=== PATIENT | male | born 1955 | race Caucasian/White ===

== ENCOUNTER 2018-09-20 09:32 | Observation (INO) | payer BC, SELFPAY ==
[2018-09-20] VITALS (9 sets, daily range): BP systolic 127–137; BP diastolic 86–94; PULSE 81–141; RESP 1–19; TEMP 36.2–36.6; O2SAT 96–99; BMI 25.2; BMI 24.3
--- NOTE | 2018-09-20 09:49 | EKG12_ITS ---
Test Reason : DIZZINESS Blood Pressure : / mmHG Vent. Rate : 095 BPM Atrial Rate : 095 BPM P-R Int : 144 ms QRS Dur : 078 ms QT Int : 366 ms P-R-T Axes : 049 022 042 degrees QTc Int : 459 ms Normal sinus rhythm Normal ECG Confirmed by MIGUE BERMUDEZ, LUCRECIA ([id number]), acquisition editor KINGSLEY SCHNEIDER ([id number]) on 09/24/2018 12:58:12 PM Referred By: Jerzy Pavon Confirmed By:MARY CAMARENA MD
--- NOTE | 2018-09-20 09:49 | CT_ITS ---
STUDY: CT BRAIN WITHOUT CONTRAST REASON FOR EXAM: Male, 63 years old. Increased weakness and dizziness. History of prostate cancer. RADIATION DOSAGE (If Supplied By Facility): CTDIvol = ( 44.99 ) mGy, DLP = ( 832.67 ) mGycm TECHNIQUE: Transaxial CT imaging of the brain was performed without administration of intravenous contrast material. Individualized dose optimization techniques were used for this CT. COMPARISON: No relevant priors. FINDINGS: Normal soft tissue structures. Normal calvarium. There is mild cerebral atrophy with widening of the extra-axial spaces and ventricular dilatation. Normal white matter tracts of the cerebral hemispheres. Normal basal ganglia and thalami. Normal brainstem. Normal cerebellum. There is no intracranial hemorrhage. There are no findings of an acute ischemic infarction. Mild mucosal thickening along the left maxillary sinus. CT/Brain/Head without Contrast IMPRESSION: Chronic involutional changes of the brain. Mucosal thickening of the right maxillary sinus. Evidence of prior maxillary sinus surgery. Electronically Signed: Allan Melendrez, at 10:46 EDT , Service support ,
--- NOTE | 2018-09-20 09:49 | RAD_ITS ---
STUDY: X-RAY CHEST REASON FOR EXAM: Male, 63 years old. Weakness and dizziness. TECHNIQUE: AP and lateral views of the chest. COMPARISON: None. FINDINGS: The lungs are clear and expanded. There is no demonstrated pleural abnormality. Normal size heart. Normal mediastinum and jay jay. Normal visualized pulmonary arteries. Normal visualized aortic arch and descending thoracic aorta. Normal visualized thoracic spine. Normal visualized ribs, clavicles, and shoulders. There is no demonstrated abnormality of the visualized soft tissue structures of the upper abdomen. RAD/Chest PA and Lateral IMPRESSION: Normal x-ray examination of the chest. Electronically Signed: Allan Melendrez, at 10:47 EDT , Service support ,
--- NOTE | 2018-09-20 09:52 | ED.VISSUMM ---
- ER Visit Summary Date of Service: 09/20/18 Chief Complaint: Dizziness and weakness History of Present Illness: The patient is a 63 M who presents with dizziness and weakness that is been getting worse over the past week. Patient was seen in the emergency department in [place] 6 days ago. Patient was diagnosed with dehydration at that time. Patient states the dizziness and weakness has been constant. Patient states he has been drinking plenty of fluids but is not feeling any better. Patient describes his dizziness as a spinning sensation and disequilibrium. Patient states his dizziness is worse with standing. Patient admits to some chills and sweats. Patient also admits to some dull aching in his left chest. Patient denies any shortness of breath. Patient denies any nausea or vomiting. Patient does admit to a headache. Physical Examination: Vital signs are stable. Patient is afebrile. Patient is in no acute distress. Pupils are equal, round, and reactive to light bilaterally. Extraocular muscles are intact. There is some nystagmus with right lateral gaze. This did reproduce the patient's dizziness. Oral mucosa is pink and moist. Neck is supple. Trachea is midline. There is no JVD noted. Heart was regular rate and rhythm. Lungs are clear and equal bilateral. Abdomen is soft. Bowel sounds are normal. There is no tenderness. There is no guarding noted. Skin is warm dry. Cranial nerves II through XII are intact. There are no focal motor or sensory deficits noted. Test Results: CT scan of the brain was obtained. There is no acute intracranial abnormality. There is some mucosal thickening of the right maxillary sinus. PA and lateral chest x-ray does not show any acute cardiopulmonary process. EKG showed normal sinus rhythm with a rate of 95. There are no acute ST or T wave changes. CBC showed a mild leukocytosis of 12.4. Hemoglobin was 11.6. Basic metabolic profile was within normal limits. Troponin was normal. Emergency Department Course and Treatment: Patient was given meclizine and Zofran here. Patient had no improvement of his dizziness with this. Patient was given a repeat dose of meclizine and a dose of Valium here. Patient states he still had no improvement of his dizziness with this. Case was discussed with the hospitalist. He will be in to evaluate the patient for observation admission. Disposition: Admit for observation Impression: 1. Dizziness This note was generated with [employer]ation software. It may contain incorrect words, spelling, and punctuation that were not noted in review of the chart prior to signing ED Disposition - Plan for ED Patient: Disposition: Acute Care Hospital [facility] Diagnosis: Dizziness of unknown etiology Referrals: Ruthie Wood MD [Primary Care Provider] -
[2018-09-20] MEDS: Meclizine HCl 25 MG Tablet PO ×2 (10:04→11:33)
[2018-09-20] MEDS: Ondansetron 4 MG/2 ML Vial IV (10:12)
[2018-09-20] MEDS: 0.9% Normal Saline 1,000 ML 1000 ML IV (10:12)
--- NOTE | 2018-09-20 10:17 | ED.RN ---
NO OLD EKG
[2018-09-20 10:30] LABS: Absolute Lymphocyte Count 1.47 X10^3/uL (0.83-4.51); Absolute Neutrophil Count 9.2 X10^3/uL (2.0-7.7); Basophil% 0.8 % (0-1); Eosinophil# 0.25 X10^3/uL; Hematocrit 37.3 % (40-54); Hemoglobin 11.6 g/dL (13.0-16.5); Lymphocyte # 1.47 X10^3/ul (4.0); Lymphocyte % 11.9 % (19-41); Mean Corp Hgb Conc 31.1 g/dL (32-36); Mean Corpuscular Hgb 26.4 pg (27.0-32.0); Mean Platelet Vol. 9.4 fl (6.2-12.0); Monocyte# 1.31 X10^3/uL; Monocyte% 10.6 % (0-10); NRBC Flagged by Analyzer 0 % (0-5); Neutrophil % 74.3 % (47-70); Platelet Count 335 K/mm3 (150-450); RBC Distribution Width CV 14.6 % (11.6-14.6); RBC Distribution Width SD 45.5 fl (35.1-43.9); Red Blood Count 4.39 M/mm3 (4.6-6.2); White Blood Count 12.4 K/mm3 (4.4-11.0)
[2018-09-20 10:43] LABS: ALB/GLOB Ratio 0.6 RATIO (0.9-2.4); AST(SGOT) 15 U/L (15-37); Alanine Aminotransfer ALT/SGPT 18 U/L (16-61); Albumin, Serum 2.8 g/dL (3.2-5.0); Alkaline Phosphatase 100 U/L (45-117); Anion Gap 9 (5-15); BUN 20 mg/dL (7-18); BUN/Creat Ratio 16.1 RATIO (10-20); Chloride 101 mmol/L (98-107); Creatinine, Serum 1.24 mg/dL (0.70-1.30); EST Glomerular Filtration Rate 62 mL/min (>60); Est Glom Filt Rate - Afr Amer 75 mL/min (>60); Estimated Creatinine Clearance 66.06 ml/min; Globulin 4.9 g/dL (2.2-4.2); Glucose 80 mg/dL (74-106); Protein, Total 7.7 g/dL (6.4-8.2); Sodium Level 134 mmol/L (136-145)
[2018-09-20] MEDS: diazePAM 2 MG Tablet PO (11:33)
--- NOTE | 2018-09-20 11:56 | ED.RN ---
Addendum entered by Meghna Fraser 09/20/18 16:18: DOCUMENTATION REGARDING WOUND DOES NOT APPLY TO THIS PT. WOUND DOCUMENT TO THIS PT IS AN ERROR. Original Note: APPLIED STERI STRIPS AFTER CLEANING WOUND TO RT HAND. STERI STRIPS ARE NOT STAYING ATTACHED. WILL REAPPLY AND PLACE DRESSING OVER WOUND. PT IS RESTING WITH EYES CLOSED AT THIS TIME.
--- NOTE | 2018-09-20 13:47 | HP.PCM_ITS ---
Problem List (1) Dizziness of unknown etiology Status: Acute History of Present Illness Date of Admission: 09/20/18 Chief Complaint: dizziness The patient is a 63 year old M normal state of health up until last week he started having dizziness. Today the dizziness is positional particular when he was standing up. Went to ER in [place] and was diagnosed with dehydration as a cause of his dizziness and sent home. Still has had symptoms. Presented to the emergency room and underwent a work-up which was unremarkable except for white count 12.4. He did receive 2 rounds of meclizine as well as diazepam without symptomatic relief. Prior to this past week patient has never had dizziness like this before. [] Past Medical History Medical History: Medical History (Last Updated 09/20/18 @ 13:49 by Jerzy Pavon DO) Rheumatoid arthritis M06.9 Allergies levofloxacin [From Levaquin] Allergy (Verified 09/20/18 09:35) Swelling Home Medications: Ambulatory Orders Medication Instructions Recorded Albuterol Sulfate [Albuterol 1 inh PO PRN PRN 09/20/18 Sulfate Hfa] Budesonide/Formoterol Fumarate 6 gm IH DAILY 09/20/18 [Symbicort 160-4.5 Mcg Inhaler] Leflunomide 20 mg PO DAILY 09/20/18 Lisinopril/Hydrochlorothiazide 1 ea PO DAILY 09/20/18 [Lisinopril-Hctz 10-12.5 mg Tab] Singulair 10 mg PO DAILY 09/20/18 Surgical History: Surgical History (Last Updated 09/20/18 @ 13:49 by Jerzy Pavon DO) Status post pericardiocentesis Z98.890 Psychiatric History: No pertinent psych hx Lives: Alone Smoking Status: Unknown if ever smoked Tobacco Use: Non-smoker Alcohol: None Drugs: None - *Family History Maternal Family History: Family History (Last Updated 09/20/18 @ 13:51 by Jerzy Pavon DO) Mother Parkinson disease Sister Parkinson disease History Items: - Review of Systems Constitutional: Denies: Chills, Fever, Weight Change Eyes: Denies: Blurred vision, Double vision HEENT: Denies: Head Aches, Sinus Congestion, Sinus Drainage Cardiovascular: Denies: Chest Pain, Palpitations Respiratory: Denies: Cough, Shortness of breath at rest, Sputum production Gastrointestinal: Denies: Abdominal Pain, Nausea, Vomiting Genitourinary: Denies: Dysuria Musculoskeletal: Denies: Joint Pain, Joint Tenderness Skin: Denies: Rash, Wounds Neurological: Reports: Change in Speech - Softer voice over the past year, Tremor - Noted over the past year, - - But 1 month ago, patient had amnesia about driving on a very similar road where he did not know where he was going or where he was. Lasted for a few minutes. Never occurred before.. Denies: Blurred vision, Double vision Psychiatric: Denies: Anxiety Endocrine: Denies: Change in Body Habitus Hematologic/ Lymphatic: Denies: Easy Bruising, Easy Bleeding Comment: A 10 point review of systems were negative except as mentioned in the history of present illness and the other review of systems. VTE Information - Inpt Only VTE Present on Admission: No VTE Mechan Device Prophylaxis: None VTE Pharm Prophylaxis ordered?: No Reason prophylaxis not ordered:: Procedure Not Indicated Patient Problems: Active and Suspected Problems Dizziness of unknown etiology (Acute) - Physical Exam General: Alert, No apparent distress HEENT: Atraumatic, PERRLA, EOMI, Normocephalic, - - He did have bilateral lateral going nystagmus with reproducible dizziness Oral: Moist Mucosa, No Gingival or Mucosal Lesions/ Ulcerations Neck: No Nodes, Thyroid Normal Size and Texture Lungs: Clear to auscultation, Normal air movement, No rhonchi, No wheeze, No rales Cardiovascular: Regular rate, Regular Rhythm, Normal S1, Normal S2, No murmurs Abdomen: Bowel Sounds Present, Soft, Non Tender, Non-Distended, No Hepato- splenomegaly Extremities: No edema, No Calf Tenderness Skin: No rashes, No breakdown Musculoskeletal: No Tenderness to Palpation of Joints or Extremities, No Muscle Wasting Neurological: Cranial nerves II-XII grossly intact, Neuro grossly intact, Motor Exam 5/5 strength throughout, - - Slight tremors of hands with his arms extended. Psych/Mental Status: Normal Affect, Appropriate Vital Signs Temp Pulse Resp BP Pulse Ox 36.2 C L 97 1 L 127/90 H 96 09/20/18 09:33 09/20/18 13:00 09/20/18 13:00 09/20/18 13:00 09/20/18 13:00 Oxygen Delivery Method Room Air Weight: 84.2 kg Body Mass Index (BMI) 25.2 Laboratory Tests Past 24 Hrs 09/20/18 09/20/18 10:10 10:10 WBC 12.4 H RBC 4.39 L Hgb 11.6 L Hct 37.3 L MCV 85.0 MCH 26.4 L MCHC 31.1 L RDW Std Deviation 45.5 H RDW Coeff of Hien 14.6 Plt Count 335 MPV 9.4 Immature Gran % (Auto) 0.400 Neut % (Auto) 74.3 H Lymph % (Auto) 11.9 L Gregory % (Auto) 10.6 H Eos % (Auto) 2.0 Baso % (Auto) 0.8 Absolute Neuts (auto) 9.2 H Absolute Lymphs (auto) 1.47 Nucleated RBC % 0 Sodium 134 L Potassium 4.0 Chloride 101 Carbon Dioxide 24.0 Anion Gap 9 BUN 20 H Creatinine 1.24 Estim Creat Clear Calc 66.06 Est GFR (MDRD) Af Amer 75 Est GFR (MDRD) Non-Af 62 BUN/Creatinine Ratio 16.1 Glucose 80 Calcium 9.0 Total Bilirubin 0.30 AST 15 ALT 18 Alkaline Phosphatase 100 Troponin I < 0.015 Total Protein 7.7 Albumin 2.8 L Globulin 4.9 H Albumin/Globulin Ratio 0.6 L Assessment/Plan All Active Problems Dizziness of unknown etiology (Acute) 1. Vertigo * I suspect peripheral type * As needed meclizine and therapy evaluation 2. Suspected transient global amnesia * About a week or so ago, patient had an episode where he was driving on a very familiar road and had no idea where he was or where he was going. He stated that that episode lasted only a few minutes. That is never happened before. * We will check an MRI to further evaluate. 3. Possible Parkinson's disease * Patient has a very slight tremor, he has reported hypophonia by his daughters at bedside though these are not pathognomonic for Parkinson's disease certa inly raises a concern trigger given his family history. He has a mother and a sister with diagnosis of Parkinson's disease. I advised he and his daughter for him to go to a facility with a specialized movement disorder specialist such as a [facility] or [facility] for a more thorough evaluation. If he does have such disease, I feel that it is not advanced. 4. Recent pericardial effusion * About a month or so ago, patient underwent a pericardiocentesis. Patient was told that the pericardial effusion was related with his rheumatoid arthritis but was put on antibiotics. * I have requested records from [place]. 5. VTE prophylaxis: Low risk as he is observation status and therefore not indicated at this time. Code Visit OBSV E&M: 90356 Initial observation care L3
--- NOTE | 2018-09-20 13:48 | MRI_ITS ---
STUDY: MRI BRAIN WITH AND WITHOUT CONTRAST REASON FOR EXAM: Male, 63 years old. Dizziness and weight loss TECHNIQUE: Standardized multiplanar fat and water weighted pulse sequences were obtained. 17 IV Dotarem was administered for the contrast portion of the examination. COMPARISON: CT of brain September 20, 2018 FINDINGS: Mild atrophy and periventricular white matter ischemic change without mass effect or restricted diffusion Normal bilateral basal ganglia. Normal thalami. There is no extra-axial fluid accumulation. Normal flow voids within the major intracranial circulation suggesting patency by spin echo criteria. Normal venous enhancement. There is no enhancing intra-axial or extra-axial abnormality. Normal sella turcica, pituitary gland, infundibular stalk, optic chiasm and hypothalamus. Normal tectal plate and pineal gland. Normal midbrain, kash and medulla. Normal cerebellum. Normal basal cisterns. Normal bilateral temporal bones. Normal bilateral internal auditory canals. No demonstrated orbital abnormality, within the constraints of a routine brain study. Mild mucosal thickening of the maxillary sinuses and left ethmoid sinus Normal calvarium and skull base. Normal visualized soft tissue structures. Normal visualized upper cervical spine. MRI/Brain W/WO Contrast IMPRESSION: Mild atrophy and periventricular white matter ischemic changes without evidence for acute infarct No focal enhancing lesions. No evidence for acoustical or vestibular schwannoma Electronically Signed: Héctor Cantu MD at 16:13 EDT , Service support ,
[2018-09-20 17:16] LABS: Bedside Glucose 82 mg/dL (70-110)
[2018-09-20] MEDS: Acetaminophen 325 MG Tablet 650 MG PO (21:08)
[2018-09-20 21:16] LABS: Bedside Glucose 82 mg/dL (70-110)
[2018-09-21 00:16] VITALS: PULSE 141
[2018-09-21 01:49] VITALS: PULSE 90
[2018-09-21 02:39] VITALS: BP 113/79; PULSE 83; RESP 16; TEMP 36.6; O2SAT 98
[2018-09-21 04:42] VITALS: PULSE 97
[2018-09-21 06:22] LABS: Absolute Lymphocyte Count 1.48 X10^3/uL (0.83-4.51); Absolute Neutrophil Count 7.2 X10^3/uL (2.0-7.7); Basophil# 0.09 X10^3/uL; Basophil% 0.9 % (0-1); Eosinophil# 0.45 X10^3/uL; Eosinophils% 4.4 % (0-5); Hematocrit 35.7 % (40-54); Lymphocyte # 1.48 X10^3/ul (4.0); Lymphocyte % 14.4 % (19-41); Mean Corp Hgb Conc 30.8 g/dL (32-36); Mean Corpuscular Hgb 26.1 pg (27.0-32.0); Mean Corpuscular Volume 84.6 fL (80-94); Mean Platelet Vol. 9.5 fl (6.2-12.0); Monocyte# 1.04 X10^3/uL; Monocyte% 10.1 % (0-10); NRBC Flagged by Analyzer 0 % (0-5); Neutrophil # 7.17 X10^3/uL (2.7-7.7); Neutrophil % 69.7 % (47-70); Platelet Count 324 K/mm3 (150-450); RBC Distribution Width CV 14.9 % (11.6-14.6); RBC Distribution Width SD 45.7 fl (35.1-43.9); Red Blood Count 4.22 M/mm3 (4.6-6.2); White Blood Count 10.3 K/mm3 (4.4-11.0)
[2018-09-21] MEDS: 0.9% NaCl Peripheral Flush Adult/Peds IV (06:30)
[2018-09-21 06:40] LABS: Bedside Glucose 81 mg/dL (70-110)
[2018-09-21 07:03] VITALS: PULSE 99
[2018-09-21 07:59] VITALS: BP 135/86; PULSE 94; RESP 16; TEMP 36.4; O2SAT 96
--- NOTE | 2018-09-21 08:17 | NURSING ---
Patient states he wants to take his daily medications when he gets home.
--- NOTE | 2018-09-21 08:32 | DCINST_ITS ---
- Discharge Diagnoses Current Active Problems: Current Active and Chronic Problems (Last Updated 09/20/18 @ 13:49 by Jerzy Pavon DO) Dizziness of unknown etiology (Acute) You will use the following diet at home:: No restrictions Your food should be the consistency of: Regular Your liquids should be the consistency of: Regular/Thin Discharge Activity: Return to Normal Activity Call your doctor if you observe: - - worsening dizziness Additional Instructions: Follow up with movement disorder specialist at earliest convenience: [facility] [phone]. [facility] [phone]. [facility] [phone] Allergies/Adverse Reactions: Allergies levofloxacin [From Levaquin] Allergy (Verified 09/20/18 09:35) Swelling Medications to take at Discharge Albuterol Sulfate [Albuterol Sulfate Hfa] 1 inh PO PRN PRN 09/20/18 Budesonide/Formoterol Fumarate [Symbicort 160-4.5 Mcg Inhaler] 6 gm IH BID 09/20/18 Colchicine [Colcrys] 1 tab PO BID 09/20/18 Hydroxychloroquine [Plaquenil] 200 mg PO BID 09/20/18 Leflunomide 20 mg PO DAILY 09/20/18 Lisinopril/Hydrochlorothiazide [Lisinopril-Hctz 10-12.5 mg Tab] 1 ea PO DAILY 09/20/18 Pantoprazole Sodium [Protonix] 40 mg PO DAILY 09/20/18 Singulair 10 mg PO DAILY 09/20/18 Meclizine HCl [Antivert] 25 mg PO 4X/DAY PRN PRN #20 tab 09/21/18 The following prescriptions were given: Meclizine HCl [Antivert] 25 mg PO 4X/DAY PRN PRN #20 tab PRN Reason: Dizziness Transmission Status: Pending to [facility] Primary Care Physician: Ruthie Wood MD [Primary Care Provider] - Within 2 Weeks Test Results: Test results from this visit will be discussed in further detail at your follow- up appointment, if applicable. Proposed Discharge Date: 09/21/18
--- NOTE | 2018-09-21 08:37 | DS.PCM_ITS ---
Discharge Date and Diagnosis - Problem List Patient Problems: Active and Suspected Problems (Last Updated 09/20/18 @ 13:49 by Jerzy Pavon DO) BPPV (benign paroxysmal positional vertigo) (Acute) Date of Admission: 09/20/18 Date of Discharge: 09/21/18 - Primary Discharge Diagnosis Active and Suspected Problems (Last Updated 09/20/18 @ 13:49 by Jerzy Pavon DO) BPPV (benign paroxysmal positional vertigo) (Acute) 1. Vertigo secondary to BPPV. * MRI negative * As needed meclizine 2. Suspected transient global amnesia * About a week or so ago, patient had an episode where he was driving on a very familiar road and had no idea where he was or where he was going. He stated that that episode lasted only a few minutes. That is never happened before. * MRI negative. 3. Possible Parkinson's disease * Patient has a very slight tremor, he has reported hypophonia by his daughters at bedside though these are not pathognomonic for Parkinson's disease certainly raises a concern trigger given his family history. He has a mother and a sister with diagnosis of Parkinson's disease. I advised he and his daughter for him to go to a facility with a specialized movement disorder specialist such as a [facility] or [facility] for a more thorough evaluation. If he does have such disease, I feel that it is not advanced. Hospital Course and Treatment Imaging Results: Clinical Impression(s) from Imaging Studies Brain CT 09/20/18 09:49 IMPRESSION: Chronic involutional changes of the brain. Mucosal thickening of the right maxillary sinus. Evidence of prior maxillary sinus surgery. Electronically Signed: Allan Melendrez, at 10:46 EDT , Service support , Chest X-Ray 09/20/18 09:49 IMPRESSION: Normal x-ray examination of the chest. Electronically Signed: Allan Melendrez, at 10:47 EDT , Service support , Brain MRI 09/20/18 13:48 IMPRESSION: Mild atrophy and periventricular white matter ischemic changes without evidence for acute infarct No focal enhancing lesions. No evidence for acoustical or vestibular schwannoma Electronically Signed: Héctor Cantu MD at 16:13 EDT , Service support , Operations: None Procedures: None Summary of Care Provided: The patient is a 63 year old M who experienced positional vertigo. Patient was admitted underwent an MRI that was negative. Patient also did complain of about a week ago where he had episode where he was driving and did not know where he was nor where he was going. Was only transient for a few minutes. Patient was admitted had an MRI that was a negative for any acute process. Unclear what what transpired with his amnesia that he had about a week ago if it was related with poor sleep hygiene but no definitive etiology was identified. For the patient's vertigo patient does have lateral going nystagmus did have reproducible dizziness with lateral gaze on the th but on the 16th, that is symptoms have resolved though he still does have the nystagmus. Patient's daughter brought up that his voice over the past year or so is gotten weaker and patient did have some tremors. Is not definitive the patient has Parkinson's disease but he does have a family history involving his mother and sister. Advised that he follow-up with movement disorder specialist at a tertiary institution to determine if he does have movement disorder or not. References were provided to the patient's some facilities that he could follow-up with. [] Patient Problems: Active and Suspected Problems (Last Updated 09/20/18 @ 13:49 by Jerzy Pavon DO) BPPV (benign paroxysmal positional vertigo) (Acute) Subjective: he has been up and ambulating without difficulty. No further dizziness. - Physical Exam General: Alert, No apparent distress HEENT: Atraumatic, EOMI, Normocephalic, - - bilateraly later nystagmus. Oral: Moist Mucosa, No Gingival or Mucosal Lesions/ Ulcerations Skin: No rashes, No breakdown Psych/Mental Status: Normal Affect, Appropriate Vital Signs Temp Pulse Resp BP Pulse Ox 36.4 C L 94 16 135/86 H 96 09/21/18 07:59 09/21/18 07:59 09/21/18 07:59 09/21/18 07:59 09/21/18 07:59 Oxygen Delivery Method Room Air Weight: 81.193 kg Body Mass Index (BMI) 24.3 Intake and Output for Last 24 Hours 09/19/18 09/20/18 09/21/18 23:59 23:59 23:59 Intake Total 1200 / 1200 200 / 200 Output Total 1150 / 1150 550 / 550 Balance 50 / 50 -350 / -350 Laboratory Tests Past 24 Hrs 09/20/18 09/20/18 09/21/18 10:10 10:10 05:36 WBC 12.4 H 10.3 RBC 4.39 L 4.22 L Hgb 11.6 L 11.0 L Hct 37.3 L 35.7 L MCV 85.0 84.6 MCH 26.4 L 26.1 L MCHC 31.1 L 30.8 L RDW Std Deviation 45.5 H 45.7 H RDW Coeff of Hien 14.6 14.9 H Plt Count 335 324 MPV 9.4 9.5 Immature Gran % (Auto) 0.400 0.500 Neut % (Auto) 74.3 H 69.7 Lymph % (Auto) 11.9 L 14.4 L [place] % (Auto) 10.6 H 10.1 H Eos % (Auto) 2.0 4.4 Baso % (Auto) 0.8 0.9 Absolute Neuts (auto) 9.2 H 7.2 Absolute Lymphs (auto) 1.47 1.48 Nucleated RBC % 0 0 Sodium 134 L Potassium 4.0 Chloride 101 Carbon Dioxide 24.0 Anion Gap 9 BUN 20 H Creatinine 1.24 Estim Creat Clear Calc 66.06 Est GFR (MDRD) Af Amer 75 Est GFR (MDRD) Non-Af 62 BUN/Creatinine Ratio 16.1 Glucose 80 Calcium 9.0 Total Bilirubin 0.30 AST 15 ALT 18 Alkaline Phosphatase 100 Troponin I < 0.015 Total Protein 7.7 Albumin 2.8 L Globulin 4.9 H Albumin/Globulin Ratio 0.6 L POC Glucose 09/21/18 09/20/18 09/20/18 06:34 21:12 17:09 POC Glucose 81 82 82 Discharge Activity: Return to Normal Activity Call your doctor if you observe: - - worsening dizziness Home Medications: Medications to take at Discharge Albuterol Sulfate [Albuterol Sulfate Hfa] 1 inh PO PRN PRN 09/20/18 Budesonide/Formoterol Fumarate [Symbicort 160-4.5 Mcg Inhaler] 6 gm IH BID 09/20/18 Colchicine [Colcrys] 1 tab PO BID 09/20/18 Hydroxychloroquine [Plaquenil] 200 mg PO BID 09/20/18 Leflunomide 20 mg PO DAILY 09/20/18 Lisinopril/Hydrochlorothiazide [Lisinopril-Hctz 10-12.5 mg Tab] 1 ea PO DAILY 09/20/18 Pantoprazole Sodium [Protonix] 40 mg PO DAILY 09/20/18 Singulair 10 mg PO DAILY 09/20/18 Meclizine HCl [Antivert] 25 mg PO 4X/DAY PRN PRN #20 tab 09/21/18 Following Prescrptions Were Given to Patient: Meclizine HCl [Antivert] 25 mg PO 4X/DAY PRN PRN #20 tab PRN Reason: Dizziness Transmission Status: Pending to [facility] Primary Care Physician: Ruthie Wood MD [Primary Care Provider] - Within 2 Weeks Medical Necessity - Tobacco Use Smoking Status: Former smoker Tobacco Use: Non-smoker Meaningful Use Info Meaningful Use Diagnoses (Choose all that apply): None applicable Code Visit OBSV E&M: 63785 Observation care discharge
== END 2018-09-21 10:03 | disposition home or self-care (01) ==
LOC: ED 12:22 → MS3 15:35
PROVIDERS: Emergency Provider Emergency Medicine; Family Provider Family Medicine; PCP Family Medicine
DX: H81.10 Benign paroxysmal vertigo, unspecified ear (principal); R51 Headache; M06.9 Rheumatoid arthritis, unspecified; Z79.899 Other long term (current) drug therapy; Z87.891 Personal history of nicotine dependence
CPT/HCPCS: 36415; 70450; 70553; 71046; 80053; 82962; 84484; 85025; 93005; 96361; 96374; 97802; 99218; 99283; A9575; J7030; A4216; G0378; J2405

== ENCOUNTER → 2018-11-01 12:13 | Outpatient (CLI) | payer BC, SELFPAY ==
[2018-09-20 13:52] VITALS: BMI 24.3
--- NOTE | 2018-11-01 12:27 | CT_ITS ---
STUDY: CT CHEST WITHOUT CONTRAST REASON FOR EXAM: Male, 63 years old. Lung nodule follow-up RADIATION DOSAGE (If Supplied By Facility): CTDIvol = ( 14.52 ) mGy, DLP = ( 558.89 ) mGycm TECHNIQUE: Transaxial imaging was performed without the administration of intravenous contrast material. Individualized dose optimization techniques were used for this CT. COMPARISON: None. FINDINGS: There is fibrosis of the anterior upper lobes. There is a noncalcified nodule of the right upper lobe measuring 3.4 mm, image 68 series 4. There is an additional right upper lobe nodule measuring 6.3 mm, image 73 series 4. There is a right middle lobe nodule measuring 8.3 x 5.7 mm, image 91 series 4. There is a fissural nodule of the left lower lobe measuring 3.8 mm, image 58 series 4. There is no demonstrated pleural abnormality. The heart size is within normal limits. There is no pericardial effusion. Coronary arterial calcifications are present. There are scattered nonpathologically enlarged mediastinal nodes. Hilar areas are difficult to assess on this noncontrast study. There is no obvious hilar mass or adenopathy. Normal unenhanced pulmonary arteries. There is aneurysmal dilatation of the thoracic aorta measuring up to 4.1 cm of the ascending aorta, 3.8 cm in diameter of the proximal arch, 3.8 cm of the distal arch, and 3.1 cm of the descending thoracic aorta. Normal osseous structures. The gallbladder is contracted. CT/Chest without Contrast IMPRESSION: Bilateral pulmonary nodules as detailed above. No previous pertinent studies are available for comparison. Coronary arterial calcifications are present. Aneurysmal dilatation of the thoracic aorta as detailed above. Electronically Signed: Andrew Murphy MD at 17:26 EDT , Service support ,
[2018-11-04 03:09] LABS: QNTFERON TB Mitogen Value > 10.00 IU/mL (.); QNTFERON TB Nil Value 0.05 IU/mL (.); QNTFERON TB1+ Ag Value 0.05 IU/mL (.); QNTFERON TB2+ Ag Value 0.04 IU/mL (.)
[2018-11-04 11:30] LABS: QNTIFERON TB Positive Criteria Negative (Negative)
== END ==
PROVIDERS: Family Provider Family Medicine; PCP Family Medicine; Referring Provider Internal Medicine Pulmonary Disease; Visit Provider Internal Medicine Pulmonary Disease
DX: R91.1 Solitary pulmonary nodule (principal)
CPT/HCPCS: 36415; 71250; 86480

== ENCOUNTER → 2019-01-31 13:40 | Outpatient (CLI) | payer BC, SELFPAY ==
[2018-09-20 13:52] VITALS: BMI 24.3
--- NOTE | 2019-01-31 13:42 | CT_ITS ---
STUDY: CT CHEST WITHOUT CONTRAST REASON FOR EXAM: Male, 63 years old. Pulmonary nodule RADIATION DOSAGE (If Supplied By Facility): CTDIvol = ( 13.39 ) mGy, DLP = ( 501.93 ) mGycm TECHNIQUE: Transaxial imaging was performed without the administration of intravenous contrast material. Coronal and sagittal reformatted images were created. Individualized dose optimization techniques were used for this CT. COMPARISON: None FINDINGS: There are stable bilateral pulmonary nodules: 4 mm nodule in the right upper lobe (image 69 series 4). 6 mm nodule in the right upper lobe (image 74 series 4). 8 mm nodule in the right middle lobe (image 92 series 4). 4 mm nodule in the left lower lobe (image 54 series 4). There are no new nodules or masses. There are no pulmonary infiltrates or pleural effusions. There is no pneumothorax. The heart and pericardium are within normal limits. There is no thoracic lymphadenopathy. There is stable mild aneurysmal dilatation of the ascending aorta, measuring 4.1 cm. Images through the upper abdomen demonstrate no significant abnormality. There are no destructive osseous lesions. CT/Chest without Contrast IMPRESSION: Stable subcentimeter nodules, measuring up to 8 mm. No new nodules or masses. A follow-up CT in 6 months is recommended. Stable mild aneurysmal dilatation of the ascending aorta, measuring 4.1 cm. Electronically Signed: Nash Hodgson, at 14:11 EST Tel , Service support ,
== END ==
PROVIDERS: Family Provider Family Medicine; PCP Family Medicine; Referring Provider Internal Medicine Pulmonary Disease; Visit Provider Internal Medicine Pulmonary Disease
DX: R91.8 Other nonspecific abnormal finding of lung field (principal)
CPT/HCPCS: 71250

== ENCOUNTER → 2019-05-02 07:54 | Outpatient (CLI) | payer BC, SELFPAY ==
[2018-09-20 13:52] VITALS: BMI 24.3
--- NOTE | 2019-05-02 08:13 | CT_ITS ---
STUDY: CT CHEST WITHOUT CONTRAST REASON FOR EXAM: Male, 64 years old. LUNG NODULE FOLLOW UP, [id number]-[id number] RADIATION DOSAGE (If Supplied By Facility): CTDIvol = ( 13.16 ) mGy, DLP = ( 470.29 ) mGycm TECHNIQUE: Transaxial imaging was performed without the administration of intravenous contrast material. Multiplanar coronal and sagittal images were reformatted. Individualized dose optimization techniques were used for this CT. COMPARISON: Comparison is made with prior examination dated January 31, 2019. FINDINGS: Small benign-appearing bilateral axillary lymph nodes. Stable focal scarring with areas of bronchiectasis in the anterior aspect of both upper lobes slightly more prominent on the left side measuring 3.3 cm x 1.7 cm. Stable 4 mm noncalcified nodule in the right upper lobe as seen on axial image #69. Stable 6 mm noncalcified nodule in the right upper lobe as seen on axial image #74. Stable 8 mm nodule in the right middle lobe as seen on axial image #92 as well as a 4 mm nodule in the left lower lobe as seen on axial image #54. There is no demonstrated pleural abnormality. Normal heart and pericardium. There are multiple small lymph nodes within the mediastinum, which are normal in size and morphology most compatible with reactive lymph hyperplasia. Normal hilar regions. Normal unenhanced pulmonary arteries. Stable mild dilatation of the ascending thoracic aorta with a transverse dimension of 4.1 cm. Normal osseous structures. There is no demonstrated abnormality of the visualized upper abdomen. CT/Chest without Contrast IMPRESSION: Stable examination. Electronically Signed: Allan Melendrez, at 9:14 EDT , Service support ,
[2019-05-02 08:57] LABS: Erythrocyte Sedimentation Rate 43 mm/hr (0-20)
[2019-05-02 09:17] LABS: PSA,Total - Annual Screen 3.36 ng/mL (0.00-4.00)
== END ==
PROVIDERS: PCP Family Medicine; Referring Provider Internal Medicine Pulmonary Disease; Visit Provider Internal Medicine Pulmonary Disease
DX: R91.1 Solitary pulmonary nodule (principal); J84.10 Pulmonary fibrosis, unspecified
CPT/HCPCS: 36415; 71250; 84153; 85652; 86140; 86431; G0103

== ENCOUNTER → 2019-10-11 16:27 | Outpatient (CLI) | payer BC, SELFPAY ==
[2018-09-20 13:52] VITALS: BMI 24.3
[2019-10-11 18:06] LABS: Absolute Lymphocyte Count 1.83 X10^3/uL (0.83-4.51); Absolute Neutrophil Count 5.9 X10^3/uL (2.0-7.7); Basophil# 0.08 X10^3/uL; Basophil% 0.9 % (0-1); Eosinophil# 0.44 X10^3/uL; Eosinophils% 4.8 % (0-5); Hematocrit 42.4 % (40-54); Hemoglobin 13.4 g/dL (13.0-16.5); Lymphocyte # 1.83 X10^3/ul (4.0); Lymphocyte % 20.1 % (19-41); Mean Corp Hgb Conc 31.6 g/dL (32-36); Mean Corpuscular Hgb 27.6 pg (27.0-32.0); Mean Corpuscular Volume 87.2 fL (80-94); Mean Platelet Vol. 9.7 fl (6.2-12.0); Monocyte# 0.79 X10^3/uL; Monocyte% 8.7 % (0-10); NRBC Flagged by Analyzer 0 % (0-5); Neutrophil # 5.93 X10^3/uL (2.7-7.7); Neutrophil % 65.2 % (47-70); Platelet Count 337 K/mm3 (150-450); RBC Distribution Width CV 14.6 % (11.6-14.6); RBC Distribution Width SD 46.5 fl (35.1-43.9); Red Blood Count 4.86 M/mm3 (4.6-6.2); White Blood Count 9.1 K/mm3 (4.4-11.0)
[2019-10-11 18:18] LABS: Erythrocyte Sedimentation Rate 38 mm/hr (0-20)
[2019-10-11 18:28] LABS: ALB/GLOB Ratio 0.7 RATIO (0.9-2.4); AST(SGOT) 18 U/L (15-37); Alanine Aminotransfer ALT/SGPT 21 U/L (16-61); Albumin, Serum 3.4 g/dL (3.2-5.0); Alkaline Phosphatase 110 U/L (45-117); Anion Gap 5 (5-15); BUN 13 mg/dL (7-18); BUN/Creat Ratio 13.5 RATIO (10-20); Calcium,Total 8.6 mg/dL (8.5-10.1); Chloride 107 mmol/L (98-107); Creatinine, Serum 0.96 mg/dL (0.70-1.30); EST Glomerular Filtration Rate 83 mL/min (>60); Est Glom Filt Rate - Afr Amer 100 mL/min (>60); Globulin 4.6 g/dL (2.2-4.2); Glucose 81 mg/dL (74-106); Potassium 3.7 mmol/L (3.5-5.1); Sodium Level 140 mmol/L (136-145)
[2019-10-12 09:44] LABS: Hepatitis B Surface Antibody Non-Reactive; Hepatitis B Surface Antigen Non-Reactive (Nonreactive); Hepatitis C Antibody Non-Reactive (Nonreactive)
[2019-10-17 04:07] LABS: QNTFERON TB Mitogen Value > 10.00 IU/mL (.); QNTFERON TB Nil Value 0.04 IU/mL (.); QNTFERON TB1+ Ag Value 0.04 IU/mL (.); QNTFERON TB2+ Ag Value 0.04 IU/mL (.)
[2019-10-17 05:38] LABS: CCP IgG Antibodies > 250 units (0-19); Hepatitis B Core AB IgM Negative (Negative); QNTIFERON TB Positive Criteria Negative (Negative)
[2019-10-17 16:08] LABS: ANTINUCLEAR ANTIBODIES DIRECT Negative (Negative)
== END ==
PROVIDERS: PCP Family Medicine; Referring Provider Internal Medicine Rheumatology; Visit Provider Internal Medicine Rheumatology
DX: M05.79 Rheumatoid arthritis with rheumatoid factor of multiple sites without organ or systems involvement (principal); M15.9 Polyosteoarthritis, unspecified; I10 Essential (primary) hypertension; C61 Malignant neoplasm of prostate; J45.909 Unspecified asthma, uncomplicated
CPT/HCPCS: 36415; 80053; 85025; 85652; 86038; 86140; 86200; 86431; 86480; 86705; 86706; 86803; 87340

== ENCOUNTER → 2020-01-07 08:27 | Outpatient (CLI) | payer BC, SELFPAY ==
[2018-09-20 13:52] VITALS: BMI 24.3
--- NOTE | 2020-01-07 08:30 | CT_ITS ---
STUDY: CT CHEST WITHOUT CONTRAST REASON FOR EXAM: Male, 64 years old. F/U NODULE RADIATION DOSAGE (If Supplied By Facility): CTDIvol = ( 16.58 ) mGy, DLP = ( 633.84 ) mGycm TECHNIQUE: Transaxial imaging was performed without the administration of intravenous contrast material. Multiplanar coronal and sagittal images were reformatted. Individualized dose optimization techniques were used for this CT. COMPARISON: Comparison is made with prior study dated 05/02/2019. FINDINGS: Small benign-appearing bilateral axillary lymph nodes. Slight decrease in size of the nodular density in the right lung apex. It presently measures 1.5 cm. Stable cystic changes in the anterior aspect of the left upper lobe. This most likely represents a focal area of scarring with bronchiectasis. New focal area of a groundglass appearance in the lateral aspect of the left upper lobe as seen on axial images #41 through 51. These were not seen on prior study. Focal areas of groundglass appearance are also seen in both lower lobes in the peripheral distribution. These were not present on prior study. Stable 6 mm noncalcified nodule in the right upper lobe. Stable 8 mm nodule in the right middle lobe. There is no demonstrated pleural abnormality. Normal heart and pericardium. There are multiple small lymph nodes within the mediastinum, which are normal in size and morphology most compatible with reactive lymph hyperplasia. Normal hilar regions. Normal unenhanced pulmonary arteries. There is atherosclerotic calcification of the aortic arch with tortuosity and elongation of the aortic arch and descending thoracic aorta. Stable minimal dilatation of the ascending thoracic aorta with a transverse dimension of 4.1 cm. There is demineralization of the thoracic spine. There is no demonstrated abnormality of the visualized upper abdomen. CT/Chest without Contrast IMPRESSION: Stable examination with respect to the nodular densities. As described above, patchy areas of groundglass appearance seen in both lungs as well as in the left upper lobe and the peripheral distribution. Follow-up is recommended. Electronically Signed: Allan Melendrez, at 11:00 EST , Service support ,
== END ==
PROVIDERS: PCP Family Medicine; Referring Provider Internal Medicine Pulmonary Disease; Visit Provider Internal Medicine Pulmonary Disease
DX: R91.1 Solitary pulmonary nodule (principal)
CPT/HCPCS: 71250

== ENCOUNTER → 2020-02-26 14:44 | Outpatient (CLI) | payer BC, SELFPAY ==
[2018-09-20 13:52] VITALS: BMI 24.3
[2020-02-26 18:08] LABS: Absolute Lymphocyte Count 1.94 X10^3/uL (0.83-4.51); Absolute Neutrophil Count 7.2 X10^3/uL (2.0-7.7); Basophil# 0.09 X10^3/uL; Basophil% 0.8 % (0-1); Eosinophil# 0.64 X10^3/uL; Eosinophils% 5.9 % (0-5); Hematocrit 43.1 % (40-54); Hemoglobin 13.6 g/dL (13.0-16.5); Lymphocyte # 1.94 X10^3/ul (4.0); Mean Corp Hgb Conc 31.6 g/dL (32-36); Mean Corpuscular Hgb 27.9 pg (27.0-32.0); Mean Corpuscular Volume 88.3 fL (80-94); Mean Platelet Vol. 9.7 fl (6.2-12.0); Monocyte# 0.87 X10^3/uL; Monocyte% 8.1 % (0-10); NRBC Flagged by Analyzer 0 % (0-5); Neutrophil # 7.22 X10^3/uL (2.7-7.7); Neutrophil % 66.8 % (47-70); Platelet Count 364 K/mm3 (150-450); RBC Distribution Width CV 14.3 % (11.6-14.6); RBC Distribution Width SD 46.1 fl (35.1-43.9); Red Blood Count 4.88 M/mm3 (4.6-6.2); White Blood Count 10.8 K/mm3 (4.4-11.0)
[2020-02-26 18:25] LABS: ALB/GLOB Ratio 0.7 RATIO (0.9-2.4); AST(SGOT) 13 U/L (15-37); Alanine Aminotransfer ALT/SGPT 23 U/L (16-61); Albumin, Serum 3.4 g/dL (3.2-5.0); Alkaline Phosphatase 129 U/L (45-117); Anion Gap 5 (5-15); BUN 15 mg/dL (7-18); BUN/Creat Ratio 16.5 RATIO (10-20); Calcium,Total 8.5 mg/dL (8.5-10.1); Chloride 106 mmol/L (98-107); Creatinine, Serum 0.91 mg/dL (0.70-1.30); EST Glomerular Filtration Rate 89 mL/min (>60); Est Glom Filt Rate - Afr Amer 107 mL/min (>60); Globulin 4.6 g/dL (2.2-4.2); Glucose 74 mg/dL (74-106); Potassium 3.8 mmol/L (3.5-5.1); Sodium Level 139 mmol/L (136-145)
== END ==
PROVIDERS: PCP Family Medicine; Referring Provider Internal Medicine Rheumatology; Visit Provider Internal Medicine Rheumatology
DX: M05.79 Rheumatoid arthritis with rheumatoid factor of multiple sites without organ or systems involvement (principal); M15.9 Polyosteoarthritis, unspecified; I10 Essential (primary) hypertension; C61 Malignant neoplasm of prostate; J45.909 Unspecified asthma, uncomplicated
CPT/HCPCS: 36415; 80053; 85025

== ENCOUNTER → 2020-06-04 11:26 | Outpatient (CLI) | payer BC, SELFPAY ==
[2018-09-20 13:52] VITALS: BMI 24.3
--- NOTE | 2020-06-04 11:29 | RAD_ITS ---
STUDY: X-RAY CHEST REASON FOR EXAM: Male, 65 years old. One month history of cough and chest tightness. TECHNIQUE: PA and lateral views of the chest. COMPARISON: Comparison is made with prior study dated 09/20/2018. FINDINGS: Hyperinflation. The lungs are clear. There is no demonstrated pleural abnormality. Normal size heart. Normal mediastinum and jay jay. Normal visualized pulmonary arteries. Normal visualized aortic arch and descending thoracic aorta. There is demineralization of the osseous structures. Normal visualized ribs, clavicles, and shoulders. There is no demonstrated abnormality of the visualized soft tissue structures of the upper abdomen. RAD/Chest PA and Lateral IMPRESSION: Hyperinflation. The lungs are clear. Electronically Signed: Allan Melendrez MD at 15:22 EDT , Service support ,
== END ==
PROVIDERS: PCP Family Medicine; Referring Provider Internal Medicine Pulmonary Disease; Visit Provider Internal Medicine Pulmonary Disease
DX: R05 Cough (principal); J45.909 Unspecified asthma, uncomplicated
CPT/HCPCS: 71046

== ENCOUNTER → 2020-06-26 08:40 | Outpatient (CLI) | payer BC, SELFPAY ==
[2018-09-20 13:52] VITALS: BMI 24.3
[2020-06-26 10:13] LABS: Absolute Lymphocyte Count 0.99 X10^3/uL (0.83-4.51); Absolute Neutrophil Count 14.3 X10^3/uL (2.0-7.7); Basophil# 0.04 X10^3/uL; Basophil% 0.2 % (0-1); Hematocrit 45.8 % (40-54); Hemoglobin 14.5 g/dL (13.0-16.5); Lymphocyte # 0.99 X10^3/ul (0.83-4.51); Lymphocyte % 6.1 % (19-41); Mean Corp Hgb Conc 31.7 g/dL (32-36); Mean Corpuscular Hgb 28.7 pg (27.0-32.0); Mean Corpuscular Volume 90.7 fL (80-94); Mean Platelet Vol. 9.8 fl (6.2-12.0); Monocyte# 0.47 X10^3/uL; Monocyte% 2.9 % (0-10); NRBC Flagged by Analyzer 0 % (0-5); Neutrophil # 14.25 X10^3/uL (2.7-7.7); Neutrophil % 87.4 % (47-70); Platelet Count 277 K/mm3 (150-450); RBC Distribution Width CV 16.3 % (11.6-14.6); RBC Distribution Width SD 53.8 fl (35.1-43.9); Red Blood Count 5.05 M/mm3 (4.6-6.2); White Blood Count 16.3 K/mm3 (4.4-11.0)
[2020-06-26 10:51] LABS: ALB/GLOB Ratio 1.1 RATIO (0.9-2.4); AST(SGOT) 17 U/L (15-37); Alanine Aminotransfer ALT/SGPT 34 U/L (16-61); Albumin, Serum 3.3 g/dL (3.2-5.0); Alkaline Phosphatase 65 U/L (45-117); Anion Gap 6 (5-15); BUN 22 mg/dL (7-18); BUN/Creat Ratio 26.6 RATIO (10-20); Calcium,Total 8.6 mg/dL (8.5-10.1); Chloride 106 mmol/L (98-107); Creatinine, Serum 0.83 mg/dL (0.70-1.30); EST Glomerular Filtration Rate 99 mL/min (>60); Est Glom Filt Rate - Afr Amer 120 mL/min (>60); Globulin 3.1 g/dL (2.2-4.2); Glucose 105 mg/dL (74-106); Potassium 3.7 mmol/L (3.5-5.1); Protein, Total 6.4 g/dL (6.4-8.2); Sodium Level 141 mmol/L (136-145)
== END ==
PROVIDERS: PCP Family Medicine; Referring Provider Internal Medicine Rheumatology; Visit Provider Internal Medicine Rheumatology
DX: M05.79 Rheumatoid arthritis with rheumatoid factor of multiple sites without organ or systems involvement (principal); Z79.899 Other long term (current) drug therapy; I10 Essential (primary) hypertension; C61 Malignant neoplasm of prostate; J45.909 Unspecified asthma, uncomplicated; H16.001 Unspecified corneal ulcer, right eye
CPT/HCPCS: 36415; 80053; 85025

== ENCOUNTER → 2020-07-08 12:42 | Outpatient (CLI) | payer BC, SELFPAY ==
[2018-09-20 13:52] VITALS: BMI 24.3
--- NOTE | 2020-07-08 12:53 | CT_ITS ---
STUDY: CT CHEST WITHOUT CONTRAST REASON FOR EXAM: Male, 65 years old. Pulmonary Nodule Follow-up . RADIATION DOSAGE (If Supplied By Facility): CTDIvol = ( 13.53 ) mGy, DLP = ( 426.79 ) mGycm TECHNIQUE: Transaxial imaging was performed without the administration of intravenous contrast material. Multiplanar coronal and sagittal images were reformatted. Individualized dose optimization techniques were used for this CT. COMPARISON: Comparison is made with prior examination dated 01/07/2020. FINDINGS: Stable small benign-appearing bilateral axillary lymph nodes. The nodular density seen in the right lung apex as change in appearance. It presently measures 1.6 cm x 1.2 cm. The cystic component has resolved. The nodule appears to be more solid in nature at this time. The previously seen area of groundglass appearance in the lateral aspect of the left upper lobe is not seen at this time. The previously seen areas of groundglass appearance in the lower lobes have cleared as well. There is no demonstrated pleural abnormality. There are calcifications of the coronary arteries. There are multiple small lymph nodes within the mediastinum, which are normal in size and morphology most compatible with reactive lymph hyperplasia. Normal hilar regions. Normal unenhanced pulmonary arteries. There is atherosclerotic calcification of the aortic arch . Stable minimal dilatation of the ascending thoracic aorta with a transverse dimension of 4.1 cm. There is demineralization of the thoracic spine. There is no demonstrated abnormality of the visualized upper abdomen. CT/Chest without Contrast IMPRESSION: Persistent 1.2 cm nodular density in the right lung apex although the cystic component has resolved as compared to prior study. The previously seen bilateral patchy areas of ground glass appearance are not seen at this time. Electronically Signed: Allan Melendrez MD at 13:46 EDT , Service support ,
== END ==
PROVIDERS: PCP Family Medicine; Referring Provider Internal Medicine Pulmonary Disease; Visit Provider Internal Medicine Pulmonary Disease
DX: R91.1 Solitary pulmonary nodule (principal)
CPT/HCPCS: 71250

== ENCOUNTER → 2020-12-16 15:38 | Outpatient (CLI) | payer BC, SELFPAY ==
[2020-12-16 17:57] LABS: Absolute Lymphocyte Count 2.17 X10^3/uL (0.83-4.51); Absolute Neutrophil Count 6.9 X10^3/uL (2.0-7.7); Basophil% 0.9 % (0-1); Eosinophil# 1.11 X10^3/uL; Eosinophils% 9.7 % (0-5); Hematocrit 40.2 % (40-54); Hemoglobin 12.8 g/dL (13.0-16.5); Lymphocyte # 2.17 X10^3/ul (0.83-4.51); Mean Corp Hgb Conc 31.8 g/dL (32-36); Mean Corpuscular Hgb 28.1 pg (27.0-32.0); Mean Corpuscular Volume 88.2 fL (80-94); Mean Platelet Vol. 9.6 fl (6.2-12.0); Monocyte# 1.07 X10^3/uL; Monocyte% 9.4 % (0-10); NRBC Flagged by Analyzer 0 % (0-5); Neutrophil # 6.91 X10^3/uL (2.7-7.7); Neutrophil % 60.6 % (47-70); Platelet Count 422 K/mm3 (150-450); RBC Distribution Width CV 12.4 % (11.6-14.6); RBC Distribution Width SD 39.9 fl (35.1-43.9); Red Blood Count 4.56 M/mm3 (4.6-6.2); White Blood Count 11.4 K/mm3 (4.4-11.0)
[2020-12-16 18:14] LABS: ALB/GLOB Ratio 0.6 RATIO (0.9-2.4); AST(SGOT) 16 U/L (15-37); Alanine Aminotransfer ALT/SGPT 23 U/L (16-61); Alkaline Phosphatase 88 U/L (45-117); Anion Gap 9 (5-15); BUN 16 mg/dL (7-18); BUN/Creat Ratio 16.2 RATIO (10-20); Calcium,Total 9.5 mg/dL (8.5-10.1); Chloride 105 mmol/L (98-107); Creatinine, Serum 0.99 mg/dL (0.70-1.30); EST Glomerular Filtration Rate 80 mL/min (>60); Est Glom Filt Rate - Afr Amer 97 mL/min (>60); Glucose 101 mg/dL (74-106); Potassium 3.6 mmol/L (3.5-5.1); Sodium Level 138 mmol/L (136-145)
[2020-12-23 16:09] LABS: QNTFERON TB Mitogen Value > 10.00 IU/mL (.); QNTFERON TB Nil Value 0.12 IU/mL (.); QNTFERON TB1+ Ag Value 0.13 IU/mL (.); QNTFERON TB2+ Ag Value 0.14 IU/mL (.)
[2020-12-23 17:29] LABS: QNTIFERON TB Positive Criteria Negative (Negative)
== END ==
PROVIDERS: PCP Family Medicine; Referring Provider Internal Medicine Rheumatology; Visit Provider Internal Medicine Rheumatology
DX: M05.79 Rheumatoid arthritis with rheumatoid factor of multiple sites without organ or systems involvement (principal); Z79.899 Other long term (current) drug therapy; J45.909 Unspecified asthma, uncomplicated; H16.001 Unspecified corneal ulcer, right eye
CPT/HCPCS: 36415; 80053; 85025; 86480